=== PATIENT | female | born 1955 | race Caucasian/White ===

== ENCOUNTER 2018-09-26 08:31 | Emergency (ER) | payer BC ==
--- OUTSIDE RECORDS SUMMARY | 2018-09-26 08:32 | XMS REPORT ---
:1955 Author Organization eClinicalWorks Care Team Providers Name Role Phone Hiram Mata Provider Role Unavailable Allergies No Known Allergies Problems Problem Type Condition Code Onset Dates Condition Status Problem Anxiety F41.9 Active Problem Vitamin D deficiency E55.9 Active Problem Fatigue, unspecified type R53.83 Active Problem BMI 30.0-30.9,adult Z68.30 Active Problem Seasonal allergic rhinitis J30.2 Active Problem Ulcerative colitis K51.90 Active Medications No Known Medications Results No Known Results Summary Purpose eClinicalWorks Submission
--- OUTSIDE RECORDS SUMMARY | 2018-09-26 08:32 | XMS REPORT ---
:1955 Author Organization eClinicalWorks Care Team Providers Name Role Phone Hiram Mata Provider Role Unavailable Allergies No Known Allergies Problems Problem Type Condition Code Onset Dates Condition Status Problem Anxiety F41.9 Active Problem Vitamin D deficiency E55.9 Active Problem Fatigue, unspecified type R53.83 Active Problem BMI 30.0-30.9,adult Z68.30 Active Assessment BMI 30.0-30.9,adult Z68.30 Active Problem Seasonal allergic rhinitis J30.2 Active Problem Ulcerative colitis K51.90 Active Medications Medication Code Code Instructions Start End Date Status Dosage System Date Saxenda [facility] 50326960745 18 MG/3ML August 14, September 27, Active Inject 1.8 Subcutaneous 2018 2018 mg SC QD x 1 once a day week, then may increase does by 0.6mg each week. Max: 3mg/day Xanax [facility] 35750625031 0.5 MG Orally Active 1 tablet PRN Results No Known Results Summary Purpose eClinicalWorks Submission
--- OUTSIDE RECORDS SUMMARY | 2018-09-26 08:33 | XMS REPORT ---
:1955 Author Organization eClinicalWorks Care Team Providers Name Role Phone Adolfo Hiram Provider Role Unavailable Allergies No Known Allergies Problems Problem Type Condition Code Onset Dates Condition Status Assessment Vitamin D deficiency E55.9 Active Assessment Plantar fasciitis of right foot M72.2 Active Assessment Fatigue, unspecified type R53.83 Active Assessment Anxiety F41.9 Active Assessment Ulcerative colitis K51.90 Active Problem Anxiety F41.9 Active Problem Vitamin D deficiency E55.9 Active Problem Fatigue, unspecified type R53.83 Active Problem BMI 30.0-30.9,adult Z68.30 Active Assessment BMI 30.0-30.9,adult Z68.30 Active Problem Seasonal allergic rhinitis J30.2 Active Problem Ulcerative colitis K51.90 Active Medications Medication Code Code Instructions Start End Status Dosage System Date Date Duexis [facility] 92239495088 800-26.6 MG September 11November Active 1 tablet Orally Three 2017 05, times a day PRN 2018 pain Saxenda [facility] 76757144853 18 MG/3ML September 11, Inactive Inject 0.6 Subcutaneous 2018 mg SC QD x once a day 1 week, then may increase does by 0.6 mg/day qwk. Max: 3mg/day Phentermine ND 95109529246 15 MG Orally September 11, Active 1 capsule HCl Once a day 2018 Xanax [facility] 78787635328 0.5 MG Orally Active 1 tablet PRN Results No Known Results Summary Purpose eClinicalWorks Submission
--- OUTSIDE RECORDS SUMMARY | 2018-09-26 08:33 | XMS REPORT ---
:1955 Author Organization eClinicalWorks Care Team Providers Name Role Phone Hiram Mata Provider Role Unavailable Allergies, Adverse Reactions, Alerts Substance Reaction Event Type N.K.D.A. Info Not Available Non Drug Allergy Problems Problem Type Condition Code Onset Dates Condition Status Assessment Vitamin D deficiency E55.9 Active Assessment BMI 30.0-30.9,adult Z68.30 Active Assessment Fatigue, unspecified type R53.83 Active Assessment Plantar fasciitis of right foot M72.2 Active Assessment Anxiety F41.9 Active Assessment Ulcerative colitis K51.90 Active Problem Anxiety F41.9 Active Problem Vitamin D deficiency E55.9 Active Problem Fatigue, unspecified type R53.83 Active Problem BMI 30.0-30.9,adult Z68.30 Active Problem Seasonal allergic rhinitis J30.2 Active Problem Ulcerative colitis K51.90 Active Medications Medication Code Code Instructions Start End Status Dosage System Date Date Duexis [facility] 05538539903 800-26.6 MG Active 1 tablet Orally Three times a day PRN pain Phentermine HCl [facility] 56946320072 37.5 MG Orally Active 1 tablet Once a day Xanax [facility] 90587589263 0.5 MG Orally Active 1 tablet PRN Results No Known Results Summary Purpose eClinicalWorks Submission
--- OUTSIDE RECORDS SUMMARY | 2018-09-26 08:33 | XMS REPORT ---
:1955 Author Organization eClinicalWorks Care Team Providers Name Role Phone Cristal Matah Provider Role Unavailable Allergies, Adverse Reactions, Alerts Substance Reaction Event Type N.K.D.A. Info Not Available Non Drug Allergy Problems Problem Type Condition Code Onset Dates Condition Status Assessment Fatigue, unspecified type R53.83 Active Problem Anxiety F41.9 Active Problem Vitamin D deficiency E55.9 Active Problem Fatigue, unspecified type R53.83 Active Problem BMI 30.0-30.9,adult Z68.30 Active Problem Seasonal allergic rhinitis J30.2 Active Problem Ulcerative colitis K51.90 Active Medications Medication Code Code Instructions Start End Status Dosage System Date Date Phentermine HCl [facility] 04962468724 37.5 MG Orally Active 1 tablet Once a day Duexis [facility] 88898515819 800-26.6 MG Active 1 tablet Orally Three times a day PRN pain Xanax [facility] 14125486116 0.5 MG Orally Active 1 tablet PRN Results No Known Results Summary Purpose eClinicalWorks Submission
--- OUTSIDE RECORDS SUMMARY | 2018-09-26 08:33 | XMS REPORT ---
[...] Status Dosage System Date Date Phentermine HCl [facility] 43947665722 15 MG Orally October 02, Inactive 1 capsule Once a day 2017 Xanax [facility] 71357490944 0.5 MG Orally Active 1 tablet PRN Duexis [facility] 92521900020 800-26.6 MG Active 1 tablet Orally Three times a day PRN pain Phentermine HCl [facility] 85005875176 37.5 MG Orally October 02, Active 1 tablet Once a day 2017 Results No Known Results Summary Purpose eClinicalWorks Submission
--- OUTSIDE RECORDS SUMMARY | 2018-09-26 08:34 | XMS REPORT ---
[...] Start End Date Status Dosage System Date Dalila [facility] 07488606346 100 MG Orally August Active 1 capsule Perles Three times a 2018 as needed day Results No Known Results Summary Purpose eClinicalWorks Submission
--- OUTSIDE RECORDS SUMMARY | 2018-09-26 08:34 | XMS REPORT ---
:1955 Author Organization eClinicalWorks Care Team Providers Name Role Phone Adolfo Hiram Provider Role Unavailable Allergies No Known Allergies Problems Problem Type Condition Code Onset Dates Condition Status Assessment Acute nasopharyngitis J00 Active Assessment Allergic rhinitis, unspecified J30.9 Active seasonality, unspecified trigger Problem Anxiety F41.9 Active Problem Vitamin D deficiency E55.9 Active Problem Fatigue, unspecified type R53.83 Active Problem BMI 30.0-30.9,adult Z68.30 Active Problem Seasonal allergic rhinitis J30.2 Active Problem Ulcerative colitis K51.90 Active Medications Medication Code Code Instructions Start End Status Dosage System Date Date Duexis [facility] 98030155446 800-26.6 MG Active 1 tablet Orally Three times a day PRN pain Xanax [facility] 54256732679 0.5 MG Orally Active 1 tablet PRN Azithromycin [facility] 84705426671 250 MG Orally Jan 06Jan Active as directed Once a day [address] [facility] 46371397992 37.5 MG Orally Active 1 tablet Once a day Results No Known Results Summary Purpose eClinicalWorks Submission
--- OUTSIDE RECORDS SUMMARY | 2018-09-26 08:34 | XMS REPORT ---
:1955 Author Organization eClinicalWorks Care Team Providers Name Role Phone Hiram Mata Provider Role Unavailable Allergies, Adverse Reactions, Alerts Substance Reaction Event Type N.K.D.A. Info Not Available Non Drug Allergy Problems Problem Type Condition Code Onset Dates Condition Status Assessment Acute frontal sinusitis, recurrence J01.10 Active not specified Problem Anxiety F41.9 Active Problem Vitamin D deficiency E55.9 Active Problem Fatigue, unspecified type R53.83 Active Problem BMI 30.0-30.9,adult Z68.30 Active Problem Seasonal allergic rhinitis J30.2 Active Problem Ulcerative colitis K51.90 Active Medications Medication Code Code Instructions Start End Date Status Dosage System Date Augmentin [facility] 63126474658 875-125 MG August Active 1 tablet Orally every 12 2018 hrs Phentermine HCl [facility] 52276302258 37.5 MG Orally Active 1 tablet Once a day Xanax [facility] 19448323493 0.5 MG Orally Active 1 tablet PRN Duexis [facility] 34958698310 800-26.6 MG Active 1 tablet Orally Three times a day PRN pain Results Name Result Date Reference Range Unit Abnormality Flag FLU TEST A/B ----A Neg [id number] ----B Neg [id number] Summary Purpose eClinicalWorks Submission
--- OUTSIDE RECORDS SUMMARY | 2018-09-26 08:34 | XMS REPORT ---
[...] Status Dosage System Date Date Phentermine HCl [facility] 45874742687 37.5 MG Orally Active 1 tablet Once a day Xanax [facility] 32262845283 0.5 MG Orally Active 1 tablet PRN Duexis [facility] 91746654800 800-26.6 MG Active 1 tablet Orally Three times a day PRN pain Results No Known Results Summary Purpose eClinicalWorks Submission
[2018-09-26 09:35] LABS: Absolute Lymphocytes (CBC) 1.5 K/uL (0.7-4.9); Absolute Monocytes 0.7 K/uL (0.1-1.3); Absolute Neutrophil 4.6 K/uL (1.8-8.0); Basophils % 0.7 % (0-1.3); Eosinophils % 1.2 % (0-4.4); Hematocrit 39.9 % (36.0-45.0); Lymphocytes % 21.6 % (15.3-44.8); MPV 7.8 fL (7.6-11.3); Monocytes % 10.4 % (3.3-12.3)
--- NOTE | 2018-09-26 09:45 | RAD REPORT ---
EXAM DESCRIPTION: CT - Head Brain Wo Cont - 09/26/2018 9:37 am CLINICAL HISTORY: NUMBNESS Headache, drowsiness COMPARISON: No comparisons TECHNIQUE: All CT scans are performed using dose optimization technique as appropriate and may inclu de automated exposure control or mA/KV adjustment according to patient size. FINDINGS: No intracranial hemorrhage, hydrocephalus or extra-axial fluid collection.Brain atrophy is present, greatest in the frontal lobes.No areas of brain edema or evidence of midline shift. The paranasal sinuses and mastoids are clear. The calvarium is intact. IMPRESSION: No acute intracranial abnormality.
[2018-09-26 09:57] LABS: ALT/SGPT 24 U/L (12-78); AST/SGOT 23 U/L (15-37); Albumin 3.8 g/dL (3.4-5.0); Alkaline Phosphatase 114 U/L (45-117); BUN Blood Urea Nitrogen 13 mg/dL (7-18); Bicarbonate 29 mmol/L (21-32); Bilirubin Direct 0.1 mg/dL (0-0.2); Bilirubin Total 0.3 mg/dL (0.2-1.0); Glucose Level 96 mg/dL (74-106); Magnesium 2.3 mg/dL (1.8-2.4); NT PRO-BNP 87 pg/mL (<125); Potassium 4.1 mmol/L (3.5-5.1); Sodium Level 143 mmol/L (136-145); Troponin (Emerg Dept Use Only) < 0.02 ng/mL (0.0-0.045)
[2018-09-26 09:59] LABS: Protime INR 0.98
[2018-09-26 10:00] LABS: Urine Blood NEGATIVE (NEG); Urine Glucose NEGATIVE (NEG); Urine Protein NEGATIVE (NEG); Urine Specific Gravity 1.015 (1.005-1.030)
--- NOTE | 2018-09-26 10:29 | EDPHYS ---
Physician Documentation [facility] Name: Massiel Feliciano Age: 63 yrs Sex: Female : 1955 Arrival Date: 09/26/2018 Time: 08:31 Bed 7 Private MD: ED Physician Antonio Nelson HPI: 09/26 10:24 This 63 yrs old Female presents to ER via Ambulatory with complaints of Chest jr8 Pressure. 10:24 Patient stated while at work sitting started to have an overwhelming warm sensation to jr8 head and arms. Had intermittent palpitation feeling with a very short chest like discomfort. Happened only once and lasted about 10 seconds. Stated that she has been under a tremendous amount of stress the past week and just wants to make sure she is ok . Severity of symptoms: At their worst the symptoms were moderate in the emergency department the symptoms have resolved. The patient has not experienced similar symptoms in the past. The patient has not recently seen a physician. Historical: - Allergies: 08:48 No Known Allergies; ss - PMHx: 08:48 ulcerative colitis; ss - PSHx: 08:48 partial hysterectomy; ss - Immunization history:: Adult Immunizations up to date. - Social history:: Smoking status: Patient/guardian denies using tobacco. - Ebola Screening: : Patient denies exposure to infectious person Patient denies travel to an Ebola-affected area in the 21 days before illness onset. ROS: 10:24 Eyes: Negative for injury, pain, redness, and discharge, ENT: Negative for injury, jr8 pain, and discharge, Neck: Negative for injury, pain, and swelling, Respiratory: Negative for shortness of breath, cough, wheezing, and pleuritic chest pain, Abdomen/GI: Negative for abdominal pain, nausea, vomiting, diarrhea, and constipation, Back: Negative for injury and pain, MS/Extremity: Negative for injury and deformity, Skin: Negative for injury, rash, and discoloration, Neuro: Negative for headache, weakness, numbness, tingling, and seizure. 10:24 Cardiovascular: Positive for chest pain, palpitations. Exam: 10:24 Eyes: Pupils equal round and reactive to light, extra-ocular motions intact. Lids and jr8 lashes normal. Conjunctiva and sclera are non-icteric and not injected. Cornea within normal limits. Periorbital areas with no swelling, redness, or edema. ENT: Nares patent. No nasal discharge, no septal abnormalities noted. Tympanic membranes are normal and external auditory canals are clear. Oropharynx with no redness, swelling, or masses, exudates, or evidence of obstruction, uvula midline. Mucous membranes moist. Neck: Trachea midline, no thyromegaly or masses palpated, and no cervical lymphadenopathy. Supple, full range of motion without nuchal rigidity, or vertebral point tenderness. No Meningismus. Cardiovascular: Regular rate and rhythm with a normal S1 and S2. No gallops, murmurs, or rubs. Normal PMI, no JVD. No pulse deficits. Respiratory: Lungs have equal breath sounds bilaterally, clear to auscultation and percussion. No rales, rhonchi or wheezes noted. No increased work of breathing, no retractions or nasal flaring. Abdomen/GI: Soft, non-tender, with normal bowel sounds. No distension or tympany. No guarding or rebound. No evidence of tenderness throughout. Back: No spinal tenderness. No costovertebral tenderness. Full range of motion. Skin: Warm, dry with normal turgor. Normal color with no rashes, no lesions, and no evidence of cellulitis. MS/ Extremity: Pulses equal, no cyanosis. Neurovascular intact. Full, normal range of motion. Neuro: Awake and alert, GCS 15, oriented to person, place, time, and situation. Cranial nerves II-XII grossly intact. Motor strength 5/5 in all extremities. Sensory grossly intact. Cerebellar exam normal. Normal gait. 10:24 ECG was reviewed by the Attending Physician. Vital Signs: 08:48 BP 153 / 96; Pulse 88; Resp 17; Temp 97.6(TE); Pulse Ox 100% on R/A; Weight 86.18 kg; ss Height 5 ft. 6 in. (167.64 cm); Pain 0/10; 09:33 BP 113 / 70; Pulse 74; Resp 17; Pulse Ox 98% on R/A; tw2 10:46 BP 140 / 88; Pulse 72; Resp 17; Pulse Ox 98% on R/A; tw2 08:48 Body Mass Index 30.67 (86.18 kg, 167.64 cm) MDM: 08:39 Patient medically screened. jr8 10:27 Differential Diagnosis Arrhythmia, ME, abnormal EKG, TIA, CVA, metabolic abnormality, jr8 anxiety, unstable angina. . Data reviewed: vital signs, nurses notes, lab test result(s), EKG, radiologic studies, CT scan, plain films. Data interpreted: Pulse oximetry: on room air is 98 %. Interpretation: normal. Counseling: I had a detailed discussion with the patient and/or guardian regarding: the historical points, exam findings, and any diagnostic results supporting the discharge/admit diagnosis, lab results, radiology results, the need for outpatient follow up, a safety and health consultant, a neurologist, to return to the emergency department if symptoms worsen or persist or if there are any questions or concerns that arise at home. Response to treatment: the patient's symptoms have resolved after treatment. 09/26 08:39 Order name: Basic Metabolic Panel [facility] 09/26 08:39 Order name: CBC with Diff [facility] 09/26 08:39 Order name: LFT's [facility] 09/26 08:39 Order name: Magnesium [facility] 09/26 08:39 Order name: NT PRO-BNP [facility] 09/26 08:39 Order name: PT-INR; Complete Time: 10:18 [facility] 09/26 08:39 Order name: Troponin (emerg Dept Use Only); Complete Time: 10:18 [facility] 09/26 08:39 Order name: XRAY Chest (1 view); Complete Time: 10:46 [facility] 09/26 08:40 Order name: Basic Metabolic Panel; Complete Time: 10:18 [facility] 09/26 08:40 Order name: CBC with Automated Diff; Complete Time: 10:18 [facility] 09/26 08:40 Order name: Liver (Hepatic) Function; Complete Time: 10:18 [facility] 09/26 08:40 Order name: Magnesium; Complete Time: 10:18 [facility] 09/26 08:40 Order name: NT PRO-BNP; Complete Time: 10:18 [facility] 09/26 09:07 Order name: Urine Dipstick--Ancillary (enter results); Complete Time: 10:18 09/26 08:39 Order name: EKG; Complete Time: 08:40 [facility] 09/26 08:39 Order name: Cardiac monitoring; Complete Time: 09:36 [facility] 09/26 08:39 Order name: EKG - Nurse/Tech; Complete Time: 09:36 09/26 08:39 Order name: IV Saline Lock; Complete Time: :36 09/26 08:39 Order name: Labs collected and sent; Complete Time: 09/26 08:39 Order name: O2 Per Protocol; Complete Time: :37 09/26 08:39 Order name: O2 Sat Monitoring; Complete Time: :09/26 09:05 Order name: CT Head Brain wo Cont; Complete Time: :18 09/26 09:40 Order name: Labs - recollect needed; Complete Time: 10:10 EC:24 Rate is 84 beats/min. Rhythm is regular, Normal Sinus Rhythm. QRS Tiro is Normal. ME jr8 interval is normal at 134 msec. QRS interval is normal at 82 msec. QT interval is normal at 446 msec. No Q waves. T waves are Normal. No ST changes noted. Clinical impression: Normal ECG and No evidence of ischemia. Interpreted by me. Reviewed by me. Administered Medications: No medications were administered Disposition: 11:58 Co-signature as Attending Physician, Antonio Nelson MD. Disposition: 09/26/18 10:28 Discharged to Home. Impression: Palpitations. - Condition is Stable. - Discharge Instructions: Palpitations. - Medication Reconciliation Form, Thank You Letter, Antibiotic Education, Prescription Opioid Use, Work release form form. - Follow up: Conner Lama MD; When: 1 week; Reason: Recheck today's complaints, Continuance of care, Re-evaluation by your physician. - Problem is new. - Symptoms have improved. Signatures: Dispatcher [employer] EDPA Ellen Mccain RN RN Forest Zee PA PA jr8 Rdaha Cool RN RN tw2 Antonio Nelson MD MD Alicia Huff Corrections: (The following items were deleted from the chart) 10:47 10:28 09/26/2018 10:28 Discharged to Home. Impression: Palpitations. Condition is tw2 Stable. Forms are Medication Reconciliation Form, Thank You Letter, Antibiotic Education, Prescription Opioid Use. Follow up: Conner Lama; When: 1 week; Reason: Recheck today's complaints, Continuance of care, Re-evaluation by your physician. Problem is new. Symptoms have improved. jr8
--- NOTE | 2018-09-26 10:29 | ER ---
Nurse's Notes [facility] Name: Massiel Feliciano Age: 63 yrs Sex: Female : 1955 Arrival Date: 09/26/2018 Time: 08:31 Bed 7 Private MD: Diagnosis: Palpitations Presentation: 09/26 08:32 Presenting complaint: Patient states: shakiness and warm sensation to bilateral upper ss extremities that radiated towards upper torso that occurred 45 minutes prior to arrival. Pt reports that during this 10-30 second episode she felt palpitations then a sudden flushed feeling all over body. Pt reports that the sensation is gone, but she now just feels heaviness to bilateral shoulders. Denies CP and/or SOB. Transition of care: patient was not received from another setting of care. Onset of symptoms was September 26, 2018. Risk Assessment: Do you want to hurt yourself or someone else? Patient reports no desire to harm self or others. Initial Sepsis Screen: Does the patient meet any 2 criteria? No. Patient's initial sepsis screen is negative. Does the patient have a suspected source of infection? No. Patient's initial sepsis screen is negative. Care prior to arrival: None. 08:32 Method Of Arrival: Ambulatory ss 08:32 Acuity: CELIA 3 ss Triage Assessment: 08:48 General: Appears in no apparent distress. comfortable, Behavior is calm, cooperative. ss Pain: Denies pain. Neuro: Level of Consciousness is awake, alert, obeys commands, Oriented to person, place, time, situation. Cardiovascular: Chest pain is denied. Respiratory: Airway is patent Respiratory effort is even, unlabored, Respiratory pattern is regular, symmetrical. Derm: Skin is intact, is healthy with good turgor, Skin is pink, warm \T\ dry. normal. Historical: - Allergies: 08:48 No Known Allergies; ss - PMHx: 08:48 ulcerative colitis; ss - PSHx: 08:48 partial hysterectomy; ss - Immunization history:: Adult Immunizations up to date. - Social history:: Smoking status: Patient/guardian denies using tobacco. - Ebola Screening: : Patient denies exposure to infectious person Patient denies travel to an Ebola-affected area in the 21 days before illness onset. Screenin:45 Abuse screen: Denies threats or abuse. Denies injuries from another. Nutritional hb screening: No deficits noted. Tuberculosis screening: No symptoms or risk factors identified. Fall Risk None identified. Assessment: 08:32 Pain: Pain does not radiate. Pain began 1 hour ago. tw2 09:34 Reassessment: Patient appears in no apparent distress at this time. No changes from tw2 previously documented assessment. Patient and/or family updated on plan of care and expected duration. Pain level reassessed. Patient is alert, oriented x 3, equal unlabored respirations, skin warm/dry/pink. 10:30 Reassessment: Patient appears in no apparent distress at this time. Patient and/or hb family updated on plan of care and expected duration. Pain level reassessed. Patient is alert, oriented x 3, equal unlabored respirations, skin warm/dry/pink. Vital Signs: 08:48 BP 153 / 96; Pulse 88; Resp 17; Temp 97.6(TE); Pulse Ox 100% on R/A; Weight 86.18 kg; ss Height 5 ft. 6 in. (167.64 cm); Pain 0/10; 09:33 BP 113 / 70; Pulse 74; Resp 17; Pulse Ox 98% on R/A; tw2 10:46 BP 140 / 88; Pulse 72; Resp 17; Pulse Ox 98% on R/A; tw2 08:48 Body Mass Index 30.67 (86.18 kg, 167.64 cm) ED Course: 08:31 Patient arrived in ED. as 08:39 [facility] Hollins [facility] jr8 08:39 Antonio Nelson MD is Attending Physician. jr8 08:47 Triage completed. ss 08:48 Arm band placed on right wrist. ss 08:50 Urine collected: clean catch specimen, clear. dh3 08:55 EKG done, by apartment maintenance technician. reviewed by Forest KINNEY. at1 09:20 Inserted saline lock: 20 gauge in right antecubital area, using aseptic technique. hb 09:22 Radiology exam delayed due to IV insertion attempt and/or patient not having sw appropriate IV at this time. 09:36 CT Head Brain wo Cont In Process Unspecified. EDMS 09:45 Patient has correct armband on for positive identification. Placed in gown. Bed in low hb position. color television console monitor on. Pulse ox on. NIBP on. 09:45 Patient maintains SpO2 saturation greater than 95% on room air. hb 10:02 XRAY Chest (1 view) In Process Unspecified. EDMS 10:07 Noemí Amaya, RN is Primary Nurse. hb 10:28 Conner Lama MD is Referral Physician. jr8 10:46 No provider procedures requiring assistance completed. IV discontinued, intact, tw2 bleeding controlled, No redness/swelling at site. Pressure dressing applied. Administered Medications: No medications were administered Outcome: 10:28 Discharge ordered by . jr8 10:46 Discharged to home ambulatory, with significant other. tw2 10:46 Condition: stable 10:46 Discharge instructions given to patient, significant other, Instructed on discharge instructions, follow up and referral plans. Demonstrated understanding of instructions, follow-up care. 10:47 Patient left the ED. tw2 Signatures: Dispatcher [employer] EDMS Marianne Ariza Shelby, ROSALVA RN Forest Hollins PA PA jr8 Zainab Verdugo, component engineer EKG Tat1 Tiera Calderon Heather, RN ROSALVA Radha Cool RN RN tw2 Linda Hillman [facility]
--- NOTE | 2018-09-26 10:39 | RAD REPORT ---
EXAM DESCRIPTION: RAD - Chest Single View - 09/26/2018 10:05 am CLINICAL HISTORY: Chest pain COMPARISON: June 2016 TECHNIQUE: AP portable chest image was obtained 1000 hours . FINDINGS: Lungs are clear. Heart and vasculature are normal. No measurable pleural effusion and no p neumothorax. No acute bony abnormality seen. No acute aortic findings suspected. IMPRESSION: No acute cardiopulmonary process. No significant change from comparison.
--- NOTE | 2018-09-26 14:45 | EKG ---
Test Date: 2018-09-26 Test Time: 08:42:53 [employer]: MELO MEASUREMENT RESULTS: Intervals: Rate: 84 MA: 134 QRSD: 82 QT: 378 QTc: 446 Padroni: P: 44 MA: 134 QRS: -22 T: 38 INTERPRETIVE STATEMENTS: Normal sinus rhythm Normal ECG Compared to ECG 01/14/2015 09:59:33 Sinus arrhythmia no longer present Electronically Signed On 09-26-18 14:44:47 CDT by Nick Davenport
== END 2018-09-26 10:47 | disposition home or self-care (01) ==
LOC: ER 08:31
DX: R00.2 Palpitations (principal)
CPT/HCPCS: 36415; 70450; 71045; 80048; 80076; 81003; 83735; 83880; 84484; 85025; 85610; 93005; 99285